=== PATIENT | female | born 1975 | race Caucasian/White ===

== ENCOUNTER → 2020-08-26 | Outpatient (CLI) | payer OTHER ==
[~2020-08-26] MED LIST: HYDROCODON-ACE1 EAC3 PO; NEXIUM20 MG PO; TYLENOL 500 MG500 MG PO; ZOFRAN4 MG PO
[2020-08-26 09:38] LABS: HEMOGLOBIN 12.9 gm/dl (12.3-15.3); RED BLOOD COUNT 4.76 M/UL (4.00-5.10); WHITE BLOOD COUNT 11.8 K/UL (4.5-11.0)
== END ==
LOC: OPSV2 09:00
PROVIDERS: Obstetrics & Gynecology
DX: Z01.812 Encounter for preprocedural laboratory examination (principal); N81.4 Uterovaginal prolapse, unspecified
CPT/HCPCS: 36415; 81001; 85025

== ENCOUNTER 2020-08-28 06:37 | Day surgery (SDC) | payer OTHER ==
[~2020-08-28] VITALS: Ht 160 cm; Wt 81.2 kg
[2020-08-28] MEDS ORDERED: NEXIUM20 MG PO (07:32)
[2020-08-28] MEDS ORDERED: TYLENOL 500 MG500 MG PO (07:32)
[2020-08-28] MEDS ORDERED: HYDROCODON-ACE1 EAC3 PO (10:15)
[2020-08-29 05:39] LABS: HEMOGLOBIN 10.5 gm/dl (12.3-15.3)
[2020-08-29] MEDS ORDERED: ZOFRAN4 MG PO (09:57)
== END 2020-08-29 12:04 | disposition home or self-care (01) ==
LOC: OR 06:37 → MED SURG 4 14:09 → OR 08-29 12:04
PROVIDERS: Obstetrics & Gynecology
PROC: 0UT94ZZ Resection of Uterus, Percutaneous Endoscopic Approach (ICD-10-PCS; principal; 2020-08-28 08:00)
PROC: 0USG7ZZ Reposition Vagina, Via Natural or Artificial Opening (ICD-10-PCS; 2020-08-28 08:00)
PROC: 0TSD0ZZ Reposition Urethra, Open Approach (ICD-10-PCS; 2020-08-28 08:00)
DX: D25.9 Leiomyoma of uterus, unspecified (principal); N39.3 Stress incontinence (female) (male); N81.82 Incompetence or weakening of pubocervical tissue; N84.0 Polyp of corpus uteri; N86 Erosion and ectropion of cervix uteri; N80.0 Endometriosis of uterus; N81.4 Uterovaginal prolapse, unspecified; N81.6 Rectocele; N32.0 Bladder-neck obstruction; K21.9 Gastro-esophageal reflux disease without esophagitis; M19.90 Unspecified osteoarthritis, unspecified site; Z88.6 Allergy status to analgesic agent; Z79.899 Other long term (current) drug therapy; Z20.822 Contact with and (suspected) exposure to COVID-19
CPT/HCPCS: 36415; 84703; 85014; 85018; C1769; C1771; J0690; J1100; J1170; J2250; J2270; J2405; J2550; J2704; J2795; J3010; J7120